=== PATIENT | male | born 1985 ===

== ENCOUNTER 2016-11-28 16:06 | Emergency (ER) | payer OTHER ==
[2016-11-28 16:36] VITALS: RESP 18; TEMP 98.1
--- NOTE | 2016-11-28 17:32 | RAD ---
HISTORY: Chest pain, cough COMPARISON: None available. TECHNIQUE: Chest PA and lateral FINDINGS: LUNGS: No focal consolidation. Please note that chest x-ray has limited sensitivity for the detection of pulmonary masses. PLEURA: No significant pleural effusion identified. No definite pneumothorax . CARDIOVASCULAR: The cardiomediastinal silhouette appears within normal limits of size. OSSEOUS STRUCTURES: Degenerative changes. VISUALIZED UPPER ABDOMEN: Unremarkable. OTHER FINDINGS: None. IMPRESSION: No focal consolidation, significant pleural effusion, or definite pneumothorax identified.
--- NOTE | 2016-11-28 17:40 | C.PDOC ---
Time Seen by Provider: 11/28/16 16:52 Chief Complaint (Nursing): Cough, Cold, Congestion History Per: Patient Onset/Duration Of Symptoms: Days (5) Current Symptoms Are (Timing): Still Present Associated Symptoms: Sore Throat, Cough, Nasal Congestion Severity: Moderate Additional History Per: Prior Records Past Medical History Reviewed: Historical Data, Nursing Documentation, Vital Signs Vital Signs: Last Vital Signs Temp 98.1 F 11/28/16 16:33 Pulse 64 11/28/16 16:33 Resp 18 11/28/16 16:53 BP 122/77 11/28/16 16:33 Pulse Ox 99 11/28/16 16:33 - Medical History PMH: No Chronic Diseases Surgical History: No Surg Hx Family History: States: Unknown Family Hx - Social History Hx Alcohol Use: Yes Hx Substance Use: No - Immunization History Hx Tetanus Toxoid Vaccination: No Hx Influenza Vaccination: No Hx Pneumococcal Vaccination: No Review Of Systems Except As Marked, All Systems Reviewed And Found Negative. Constitutional: Negative for: Weakness Cardiovascular: Positive for: Chest Pain Respiratory: Positive for: Cough. Negative for: Hemoptysis Gastrointestinal: Negative for: Vomiting, Abdominal Pain, Diarrhea Genitourinary: Negative for: Dysuria Musculoskeletal: Negative for: Neck Pain, Back Pain, Leg Pain Skin: Negative for: Rash Neurological: Negative for: Weakness, Numbness, Seizures, Altered Mental Status Physical Exam - Physical Exam Appears: Non-toxic, No Acute Distress Skin: Normal Color, Warm, Dry, No Rash Head: Atraumatic, Normacephalic Eye(s): bilateral: PERRL, EOMI Throat: Erythema, No Exudate, No Drooling, No Mass Neck: Normal ROM, Supple Chest: Symmetrical, No Deformity, No Tenderness Cardiovascular: Rhythm Regular Respiratory: Normal Breath Sounds, No Accessory Muscle Use Gastrointestinal/Abdominal: Soft, No Tenderness Back: No CVA Tenderness Extremity: Normal ROM, No Pedal Edema, No Calf Tenderness Extremity: Bilateral: Normal Color And Temperature Neurological/Psych: Oriented x3, Normal Speech, Normal Cognition, Normal Motor, Normal Sensation ED Course And Treatment ECG: Interpreted By Me, Viewed By Me ECG Rhythm: Sinus Rhythm ECG Interpretation: No Acute Changes Rate From EC O2 Sat by Pulse Oximetry: 99 Pulse Ox Interpretation: Normal - Radiology CXR: Viewed By Me, Read By Radiologist CXR Interpretation: Yes: No Acute Disease Disposition Counseled Patient/Family Regarding: Studies Performed, Diagnosis, Need For Followup, Rx Given - Disposition Disposition: HOME/ ROUTINE Disposition Time: 17:43 Condition: STABLE Additional Instructions: Follow up with your doctor. Drink plenty of fluids. Return to the ER if you develop high fever, lethargy, shortness of breath, worsening of symptoms or if you have any other concerns. Instructions: Upper Respiratory Infection (ED) Print Language: CZECH - Clinical Impression Clinical Impression: Upper respiratory tract infection
[2016-11-28 18:11] VITALS: BP 107/75; PULSE 78; O2SAT 100
== END 2016-11-28 18:11 | disposition home or self-care (01) ==
LOC: C.ER 16:06
DX: J06.9 Acute upper respiratory infection, unspecified (principal)

== ENCOUNTER 2018-04-17 13:57 | Emergency (ER) | payer OTHER ==
[2018-04-17 14:02] VITALS: BP 121/75; PULSE 71; RESP 18; TEMP 98.1; O2SAT 98
--- NOTE | 2018-04-17 14:12 | C.PDOC ---
History Of Present Illness 32 yo male w/o significant PMHx come in for evaluation of B/L eyes redness gradually developed for past week associated with intermittent greenish discharge. 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 Otherwise , pt denies fever, chills, headache, dizziness, denies blurry vision, FB sensation, denies pain or discomfort on eye movement B/L, denies CP, SOB, dyspnea, wheezing, abd. pain, N/V, denies known trauma or injury, denies known sick contact, denies any other active complaint. Time Seen by Provider: 04/17/18 14:03 Chief Complaint (Nursing): Eye Problem History Per: Patient Past Medical History Reviewed: Historical Data, Nursing Documentation, Vital Signs Vital Signs: Last Vital Signs Temp 98.1 F 04/17/18 14:00 Pulse 71 04/17/18 14:00 Resp 18 04/17/18 14:00 BP 121/75 04/17/18 14:00 Pulse Ox 98 04/17/18 14:12 - Medical History PMH: No Chronic Diseases Family History: States: Unknown Family Hx - Social History Hx Tobacco Use: Yes Hx Alcohol Use: Yes Hx Substance Use: No - Immunization History Hx Tetanus Toxoid Vaccination: No Hx Influenza Vaccination: No Hx Pneumococcal Vaccination: No Review Of Systems Except As Marked, All Systems Reviewed And Found Negative. Constitutional: Negative for: Fever, Chills Eyes: Positive for: Redness. Negative for: Pain, Vision Change, Eyelid Inflammation ENT: Negative for: Ear Pain, Ear Discharge, Nose Discharge Cardiovascular: Negative for: Chest Pain, Palpitations, Edema, Light Headedness Respiratory: Positive for: Cough. Negative for: Shortness of Breath, Wheezing Gastrointestinal: Negative for: Nausea, Vomiting, Abdominal Pain, Diarrhea Genitourinary: Negative for: Dysuria Musculoskeletal: Negative for: Neck Pain, Back Pain Skin: Negative for: Rash Neurological: Negative for: Weakness, Numbness, Headache, Dizziness Physical Exam - Physical Exam Appears: Well, Non-toxic, No Acute Distress Skin: Normal Color, Warm, Dry, No Rash Head: Normacephalic Eye(s): bilateral: PERRL, EOMI (no pain or limitation on extraocular movement), Other (diffuse B/L conjunctival injection, no discharge, no periorbital edema or erythema.) Ear(s): Bilateral: Normal Nose: No Flaring, No Discharge Oral Mucosa: Moist, No Drooling Throat: No Erythema, No Drooling Neck: Normal ROM, Trachea Midline, Supple Cardiovascular: Rhythm Regular, No Murmur, No JVD Respiratory: No Decreased Breath Sounds, No Rales, No Rhonchi, No Stridor, No Wheezing Gastrointestinal/Abdominal: Soft, No Tenderness Extremity: Normal ROM, No Deformity, No Swelling Neurological/Psych: Oriented x3, Normal Speech, Normal Cognition, Normal Motor, Normal Sensation, Normal Reflexes ED Course And Treatment O2 Sat by Pulse Oximetry: 98 Pulse Ox Interpretation: Normal - Radiology CXR: Interpreted by Me, Viewed By Me CXR Interpretation: Yes: No Acute Disease Progress Note: On re-eavl, pt is afebrile, hemodynamicaly stable. Non-toxic. PuslEOx 98% RA. ENT: No acute findings. B/L eyes: diffuse conjuntival ingection. NO pain or limitation on extraocular movement, no eye discharge, no periorbital edema or erythema. VA: R 20/30, L 20/30 without correction. Neck: SUpple, (-) meningeal sign. Lungs: CTA B/L, BS equal B/L. CVS: (+)S1S2, reg. ABd: Benign. Neuorlogicaly intact. CXR- no acute findings. Pt has clinical findings c/w eye redness r/o iritis, acute bronchitis. Pt advised and ref. to F /u with Opht, PMD in 1-2 days for re-eval. return to ED if any worsening or new changes. Disposition Counseled Patient/Family Regarding: Studies Performed, Diagnosis, Need For Followup, Rx Given - Disposition Referrals: Yaniv Yang, DNP, [employer] [Advanced Practice Nurse] - Erwin Garcia MD [Staff Provider] - Disposition: HOME/ ROUTINE Disposition Time: 14:38 Condition: STABLE Additional Instructions: Encourage fluids Take medication as prescribed Follow up with PMD, Eye doctor in 1-2 days for re-evaluation. Return to ED if any worsening or new changes. Prescriptions: Doxycycline Hyclate [Doryx] 100 mg PO BID #14 cap Neomycin/Polymyxin/Dexamethaso [Dexamethasone/Neomycin/Polymyxin 5 Ml] 2 drop BOTHEYES Q6 #1 bottle Prednisone [Deltasone] 40 mg PO DAILY #6 tablet Instructions: Acute Bronchitis, Adult (DC), Uveitis Forms: [facility] (Georgian), Work Excuse - Clinical Impression Clinical Impression: Bronchitis, Uveitis
--- NOTE | 2018-04-17 14:51 | RAD ---
Date of service: 04/17/2018 HISTORY: Cough COMPARISON: 11/28/2016 TECHNIQUE: Chest PA and lateral FINDINGS: LUNGS: No active pulmonary disease. PLEURA: No significant pleural effusion identified. No pneumothorax apparent. CARDIOVASCULAR: Normal. OSSEOUS STRUCTURES: No significant abnormalities. VISUALIZED UPPER ABDOMEN: Normal. OTHER FINDINGS: None. IMPRESSION: No active disease. No interval pathology noted
== END 2018-04-17 14:46 | disposition home or self-care (01) ==
LOC: C.ER 13:57
DX: J40 Bronchitis, not specified as acute or chronic (principal); H20.9 Unspecified iridocyclitis; Z72.0 Tobacco use